=== PATIENT | male | born 1980 | race Caucasian/White ===

== ENCOUNTER → 2024-09-02 15:04 | Outpatient (CLI) | payer OTHER, SELFPAY ==
--- NOTE | 2024-09-02 | DI.MRI.S_ITS ---
PROCEDURE: MR LUMBAR SPINE WO CON INDICATIONS: LOW BACK PAIN,TINGLE IN RT LEG TECHNIQUE: Noncontrast sagittal T1 spin echo and T2 fast echo, sagittal STIR, and T2 fast spin echo through the lumbar spine. In cases with scoliosis, additional coronal T2 fast spin echo may be performed. COMPARISON: None. FINDINGS: Image quality: This examination is limited by involuntary motion artifact. Alignment and Curvature: There is minimal anterolisthesis seen at L3-L4. Mild retrolisthesis is seen at L4-L5. Grade 2 anterolisthesis is seen at L5-S1, with associated bilateral L5 pars defects. Bone Marrow: Marrow is of normal overall signal. No acute vertebral body compression fractures. Spinal Cord: Conus medullaris terminates at the L1 level. Visualized cord demonstrates normal signal and size. Paraspinous Soft Tissues: No paravertebral masses. T12-L1: Normal appearance. L1-L2: Normal appearance. L2-L3: Normal appearance. L3-L4: Mild loss of disc height is seen. Loss of disc signal is seen. Mild to moderate disc bulge is seen, with a central disc protrusion. There is a focal annular fissure seen posteriorly. Mild facet joint hypertrophy is seen. Moderate bilateral neural foraminal narrowing is seen. Mild central canal narrowing is seen. L4-L5: The disc height is well-preserved. Loss of disc signal is seen at this level. Mild to moderate disc bulge is seen, with a mild central disc extrusion, with mild inferior migration of the disc material. There is a focal annular fissure seen posteriorly. Mild facet joint hypertrophy is seen. There is at least moderate bilateral neural foraminal narrowing seen. Mild central canal narrowing is seen. L5-S1: Moderate loss of disc height is seen. Loss of disc signal is seen. Moderate disc bulge is seen. There is a superimposed central disc protrusion/uncovering. Mild facet joint hypertrophy is seen. There is at least moderate left-sided and moderate to severe right-sided neural foraminal narrowing. There is a degree of compression seen upon the exiting nerve roots. No significant central canal narrowing is seen. IMPRESSION: At L5-S1, there is grade 2 anterolisthesis, with associated bilateral L5 pars defects. Moderate to severe bilateral neural foraminal narrowing can be seen at L5-S1, with associated nerve root compression. Milder degenerative changes are seen elsewhere. Dictated by: Aaron Bridges M.D. on 09/04/2024 at 11:10 Approved by: Aaron Bridges M.D. on 09/04/2024 at 11:14
== END ==
PROVIDERS: Referring Provider Chiropractor Independent Medical Examiner; Visit Provider Chiropractor Independent Medical Examiner
DX: T14.90XA Injury, unspecified, initial encounter (principal); M43.17 Spondylolisthesis, lumbosacral region; M48.07 Spinal stenosis, lumbosacral region; M47.817 Spondylosis without myelopathy or radiculopathy, lumbosacral region; M47.816 Spondylosis without myelopathy or radiculopathy, lumbar region; M54.50 Low back pain, unspecified; R20.2 Paresthesia of skin; X50.9XXA Other and unspecified overexertion or strenuous movements or postures, initial encounter
CPT/HCPCS: 72148